=== PATIENT | male | born 1945 | race Caucasian/White ===

== ENCOUNTER 2016-12-21 02:24 | Emergency (ER) | payer OTHER, MEDICARE ==
[2016-12-21 02:35] VITALS: BP 141/84; PULSE 60; RESP 16; TEMP 98.2; O2SAT 92
--- NOTE | 2016-12-21 02:35 | EDPHY ---
H & P Stated Complaint: knee gave out and patient fell in kitchen and struck his head - head lac HPI/ROS: HPI CHIEF COMPLAINT: Laceration posterior occiput HISTORY OF PRESENT ILLNESS: This patient very pleasant 71-year-old male otherwise healthy no significant medical history does not take any daily medications. He states he was in his kitchen. He slipped. He had a mechanical trip and fall. His head struck the wall. No LOC. No headache. No neck pain. He sustained a linear vertically oriented posterior scalp laceration. 5 cm in vertical length. No other injuries. Patient is not on any blood thinners. Patient reports to me his tetanus shot is up-to-date. Past Medical History: Denies medical history Past Surgical History: Denies surgical history Social History: Denies daily use drugs alcohol tobacco products. Family History: Noncontributory. ROS REVIEW OF SYSTEMS: A comprehensive 10 point review of systems is otherwise negative aside from elements mentioned in the history of present illness. Exam Constitutional triage nursing summary reviewed, vital signs reviewed, awake/ alert. Eyes normal conjunctivae and sclera, EOMI, PERRLA. HENT head/neck: Posterior occiput vertical laceration 5 cm in length. Otherwise head neck exam unremarkable. normal inspection, atraumatic, moist mucus membranes, no epistaxis, neck supple/ no meningismus, no raccoon eyes. Respiratory clear to auscultation bilaterally, normal breath sounds, no respiratory distress, no wheezing. Cardiovascular rate normal, regular rhythm, no murmur, no edema, distal pulses normal. Gastrointestinal soft, non-tender, no rebound, no guarding, normal bowel sounds, no distension, no pulsatile mass. Genitourinary no CVA tenderness. Musculoskeletal no midline vertebral tenderness, full range of motion, no calf swelling, no tenderness of extremities, no meningismus, good pulses, neurovascularly intact. Skin pink, warm, & dry, no rash, skin atraumatic. Neurologic awake, alert and oriented x 3, AAOx3, moves all 4 extremities equally, motor intact, sensory intact, CN II-XII intact, normal cerebellar, normal vision, normal speech. Psychiatric normal mood/affect. Heme/Lymph/Immune no lymphadenopathy. Differential Diagnosis: Includes but is not limited to in a particular order; scalp laceration, closed head injury, concussion, doubt intracranial bleed or skull fracture. Medical Decision Making: Plan for this patient lidocaine with epinephrine will be used to anesthetize his laceration. Will be copiously irrigated and cleaned. And then he will require staple closure. Re-evaluation: 0250; patient has a unremarkable neurological exam without any headache. Without significant head trauma he is not on any blood thinners. I do not feel that he needs any imaging. He understands to have his doc removed in 7 days. Laceration Repair Procedure: Verbal Consent was obtained, Under sterile conditions, The patient had lidocaine with epinephrine used approximately 7ccs to local anesthetize the 5CM vertical post scalp Laceration. The wound was copiously irrigated with sterile fluid, the wound was explored for foreign bodies there were none visualized, the wound was explored with a sterile glove to the base. There are no deep structures involved, including no arterial injury. FIVE DOC were placed in this patient's laceration. He had good close approximation of the wound edges. He Tolerated this well. Keep her wound clean, dry, protected and clean. Watch for signs of infection. [place] removed in 7 days. Source: Patient - Personal History Current Tetanus/Diphtheria Vaccine: Yes - Medical/Surgical History Hx Asthma: No Hx Chronic Respiratory Disease: No Hx Diabetes: No Hx Cardiac Disease: No Hx Renal Disease: No Hx Cirrhosis: No Hx Alcoholism: No Hx HIV/AIDS: No Hx Splenectomy or Spleen Trauma: No Other PMH: PMHx: seizures - prevented by medical marijuana. PSHx: ankle, lenses replaced, radial keratotomy, skin graft - Social History Smoking Status: Never smoked Constitutional: Initial Vital Signs Temperature (C) 36.8 C 12/21/16 02:31 Heart Rate 60 12/21/16 02:31 Respiratory Rate 16 12/21/16 02:31 Blood Pressure 141/84 H 12/21/16 02:31 O2 Sat (%) 92 12/21/16 02:31 O2 Delivery Mode Room Air Allergies/Adverse Reactions: bacitracin [From Neosporin ([id number])] Allergy (Verified 12/21/16 02:30) neomycin [From Neosporin ([id number])] Allergy (Verified 12/21/16 02:30) polymyxin B [From Neosporin ([id number])] Allergy (Verified 12/21/16 02:30) Home Medications: Medication Instructions Recorded NK [No Known Home Meds] 12/21/16 Departure - Departure Disposition: Home, Routine, Self-Care Clinical Impression: Laceration Condition: Good Instructions: Laceration (ED), Staple Care (ED) Additional Instructions: 1. Please return emergency room in 7 days to have your doc removed. 2. Keep her wound dry, clean, protected. 3. Return emergency room if you have any further questions or concerns. Referrals: Chantal Marcos PA [Primary Care Provider] - As per Instructions
== END 2016-12-21 03:01 | disposition home or self-care (01) ==
PROC: 0HQ0XZZ Repair Scalp Skin, External Approach (ICD-10-PCS; principal; 2016-12-21)
DX: S01.01XA Laceration without foreign body of scalp, initial encounter (principal); W01.118A Fall on same level from slipping, tripping and stumbling with subsequent striking against other sharp object, initial encounter; Y92.000 Kitchen of unspecified non-institutional (private) residence as the place of occurrence of the external cause; Y99.8 Other external cause status